=== PATIENT | male | born 1935 | race Caucasian/White ===

== ENCOUNTER → 2018-01-14 09:47 | Outpatient (CLI) | payer MEDICARE, OTHER ==
[2014-12-28 09:17] VITALS: BMI 26.6
[~2018-01-14 09:47] MED LIST: ATACAND HCT PO; LIPITOR10 MG PO; ZETIA10 MG PO
== END | disposition home or self-care (01) ==
LOC: D.CT 09:47
DX: R05 Cough (principal)

== ENCOUNTER → 2019-03-01 10:19 | Outpatient (CLI) | payer MEDICARE, OTHER ==
[2014-12-28 09:17] VITALS: BMI 26.6
--- NOTE | 2019-03-06 08:31 | EC ---
PATIENT:SALUD GONZALES DATE OF SERVICE: 03/01/19 SEX: M MEDICAL RECORD: [id number] DATE OF : 37 LOCATION:D[facility] AGE OF PATIENT: 83 ADMISSION DATE: 03/01/19 REFERRING PHYSICIAN: INTERPRETING PHYSICIAN: ESAU SAUL MD ECHOCARDIOGRAM REPORT ECHO CHARGES 4 ECHO COMPLETE Date: 03/01/19 CLINICAL DIAGNOSIS: AORTIC REGURG ECHOCARDIOGRAPHIC MEASUREMENTS (adult normal given) AC root (d.<3.7cm) 3.2 cm LV Septum d (<1.2 cm> 1.2 cm Valve Excursion 1.3 cm LV Septum (systole) 1.4 cm Left Atria (s.<4.0cm> 3.8 cm LVPW d(<1.2cm) 1.1 cm RV (d.<2.3cm) 4.1 cm LVPW (sytole) 1.7 cm LV diastole(<5.6CM) 5.0 cm MV E-F(>70mm/sec) cm LV systole 3.4 cm LVOT Diameter 1.9 cm MV exc.(>10mm) 1.4 cm Est.ejection fraction (50-75%) % DOPPLER: LVIT cm/sec A 103 cm/sec E 93.0 cm/sec LA cm/sec RVSP 35 mmHg LVOT 139 cm/sec AOP1/2T 686 m/s Asc. Ao 168 cm/sec RVOT 105 cm/sec RA cm/sec PA 130 cm/sec AV Gradient Peak 11.32mmHg AV Mean 5.62 mmHg AV Area 2.3 cm MV Gradient Peak 6.74 mmHg MV Mean 2.43 mmHg MV Area cm COMMENTS: Integration Architect: Khari ANDREWS Cubing Machine Tender: 3 Dr. Currie TAPE# PACS Pericardial Effusion N DATE OF SERVICE: 03/01/2019 Adequate 2-D echo, color-flow and spectral Doppler, and M-mode. Borderline LVH. LV internal dimensions are normal. Wall motion is normal. EF is greater than or equal to 55%. Aortic valve is tricuspid without stenosis by Doppler interrogation. Mild AI by color-flow imaging. Left atrium is normal at 3.8 cm. Mitral valve shows no prolapse. Mild MR. Right-sided chambers are grossly normal. Mild TR. ECHOCARDIOGRAM REPORT [id number] SALUD GONZALES TRANSINT:[id number] Voice Confirmation ID: [id number] DOCUMENT ID: [id number] ESAU SAUL MD at 0831 CC: [id number] DICTATION DATE: 03/02/19 1529 POT PUNCHER: 03/02/19 1603 [facility] CLI 03/01/19 [place] [id number] [place] [id number]
== END | disposition home or self-care (01) ==
LOC: D.HCCARDIO 10:00
PROVIDERS: ATTEND Internal Medicine Interventional Cardiology
DX: I35.1 Nonrheumatic aortic (valve) insufficiency (principal)

== ENCOUNTER → 2020-03-20 10:05 | Outpatient (CLI) | payer MEDICARE, OTHER ==
[2014-12-28 09:17] VITALS: BMI 26.6
--- NOTE | ~2020-03-20 | EC ---
PATIENT:SALUD GONZALES DATE OF SERVICE: 03/20/20 SEX: M MEDICAL RECORD: [id number] DATE OF : 37 LOCATION:D.[facility] AGE OF PATIENT: 84 ADMISSION DATE: 03/20/20 REFERRING PHYSICIAN: INTERPRETING PHYSICIAN: ESAU SAUL MD ECHOCARDIOGRAM REPORT ECHO CHARGES 4 ECHO COMPLETE Date: 03/20/20 CLINICAL DIAGNOSIS: HTN/ASSESS MITRAL/AORTIC/ TRICSUPID REGURG ECHOCARDIOGRAPHIC MEASUREMENTS (adult normal given) AC root (d.<3.7cm) 3.8 cm LV Septum d (<1.2 cm> 1.7 cm Valve Excursion 1.7 cm LV Septum (systole) 1.8 cm Left Atria (s.<4.0cm> 4.3 cm LVPW d(<1.2cm) 1.8 cm RV (d.<2.3cm) 3.9 cm LVPW (sytole) 1.9 cm LV diastole(<5.6CM) 4.6 cm MV E-F(>70mm/sec) cm LV systole 2.9 cm LVOT Diameter 1.7 cm MV exc.(>10mm) 1.5 cm Est.ejection fraction (50-75%) % DOPPLER: LVIT cm/sec A 105.0cm/sec E 100.0 cm/sec LA cm/sec RVSP 35 mmHg LVOT 129 cm/sec AOP1/2T 594 m/s Asc. Ao 164 cm/sec RVOT cm/sec RA cm/sec PA cm/sec AV Gradient Peak 10.80mmHg AV Mean 5.83 mmHg AV Area 1.9 cm MV Gradient Peak 6.59 mmHg MV Mean 2.30 mmHg MV Area cm COMMENTS: Structural Steel Painter: 2 THIERNO ANDREWS Electronic Intelligence Officer: 3 Dr. Currie TAPE# PACS Pericardial Effusion N DATE OF SERVICE: Adequate 2D, color flow imaging, spectral Doppler, and M-mode. LVH is present. LV internal dimensions are normal. Wall motion is normal. EF is greater than or equal to 55%. Aortic valve is tricuspid. No evidence of stenosis by Doppler interrogation. Left atrium is dilated 4.3 cm. Mitral valve shows no prolapse. Trace MR. Right-sided chambers are grossly normal. Mild TR. ECHOCARDIOGRAM REPORT [id number] SALUD GONZALES TRANSINT:[id number] Voice Confirmation ID: [id number] DOCUMENT ID: [id number] ESAU SAUL MD CC: [id number] DICTATION DATE: 03/22/20 105 TREATING AND PUMPING SUPERVISOR: 03/22/202122 [facility]P CLI 03/20/20 [place] [id number] [place] [id number]
== END | disposition home or self-care (01) ==
LOC: D.HCCECHO 10:00
PROVIDERS: ATTEND Internal Medicine Interventional Cardiology
DX: I10 Essential (primary) hypertension (principal)